=== PATIENT | female | born 1995 | race Caucasian/White ===

== ENCOUNTER 2017-01-29 08:43 | Emergency (ER) | payer SELFPAY ==
[2017-01-29] MEDS ORDERED: Diphtheria,Pertussis(Acell),Tetanus Vaccine 0.5 ML Syringe IM ONE (09:22)
[2017-01-29] MEDS ORDERED: Ibuprofen 600 MG Tab PO ONE (09:22)
--- NOTE | 2017-01-29 09:45 | EDM.PDOC ---
[id number]: SPLINTER IN HER FINGERNAIL Time Seen by Provider: 01/29/17 08:47 Source of Information: Reports: Patient History Limitations: Reports: No Limitations - History of Present Illness INITIAL COMMENTS - FREE TEXT/NARRATIVE: HISTORY AND PHYSICAL: History of present illness: [21-year-old female complaining of splinter under her fingernail which she sustained last night. It was very painful and becoming red. She was able to grab the splinter and remove it however she is concerned some residual splinter might still be in place. Swelling and erythema are resolved this morning but area is still mildly sore Review of systems: As per history of present illness and below otherwise all systems reviewed and negative. Past medical history: As per history of present illness and as reviewed below otherwise noncontributory. Surgical history: As per history of present illness and as reviewed below otherwise noncontributory. Social history: No reported history of drug or alcohol abuse. Family history: As per history of present illness and as reviewed below otherwise noncontributory. Physical exam: HEENT: Atraumatic, normocephalic, pupils reactive, negative for conjunctival pallor or scleral icterus, mucous membranes moist, throat clear, neck supple, nontender, trachea midline. Lungs: Clear to auscultation, breath sounds equal bilaterally, chest nontender. Heart: S1S2, regular, negative for clicks, rubs, or JVD. Abdomen: Soft, nondistended, nontender. Negative for masses or hepatosplenomegaly. Negative for costovertebral tenderness. Pelvis: Stable nontender. Genitourinary: Deferred. Rectal: Deferred. Extremities: Atraumatic, negative for cords or calf pain. Neurovascular unremarkable. Neuro: Awake, alert, oriented. Cranial nerves II through XII unremarkable. Cerebellum unremarkable. Motor and sensory unremarkable throughout. Exam nonfocal. Diagnostics: [] Therapeutics: [] Impression: [] Plan: [Signs and symptoms consistent with splinter that has been removed. The splinter tract is visible through the fingernail and it does not appear that any foreign body remains. Also clinical evidence of resolution of swelling and erythema which was present previously would indicate that there is no residual foreign body. Discussed with patient possibility of occult foreign body however clinical findings are reassuring at this time. She is aware to follow-up with her PCP for recheck and return immediately for signs of evolving infection] Definitive disposition and diagnosis as appropriate pending reevaluation and review of above. Left 4-Ring finger Pain Score (Numeric/FACES): 3 - Related Data Allergies Allergy/AdvReac Type Severity Reaction Status Date / Time hydromorphone HCl Allergy Hives Verified 07/13/16 16:17 [From Dilaudid] Home Meds: Home Meds . [No Known Home Meds] 07/03/15 [History] Past Medical History - Past Health History Medical/Surgical History: Denies Medical/Surgical History Genitourinary History: Reports: Renal Calculus Other Genitourinary History: Lithotripsy 2012 [employer] History: Reports: Psychiatric History: Reports: Anxiety, Depression, Suicide Attempt, Suicidal Ideation - Infectious Disease History Infectious Disease History: Reports: Chicken Pox - Past Surgical History Female Surgical History: Reports: Lithotripsy/ESWL Social & Family History - Family History Family Medical History: Noncontributory - Tobacco Use Smoking Status *Q: Current Every Day Smoker Years of Tobacco use: 9 Packs/Tins Daily: 1 Used Tobacco, but Quit: No Second Hand Smoke Exposure: No - Caffeine Use Caffeine Use: Reports: Energy Drinks - Alcohol Use Days Per Week of Alcohol Use: 0 Number of Drinks Per Day: 3 Total Drinks Per Week: 0 - Recreational Drug Use Recreational Drug Use: No Recreational Drug Type: Reports: Methamphetamine Recreational Drug Use Frequency: Weekly ED ROS GENERAL - Review of Systems Review Of Systems: See Below (History of present illness) ED EXAM, SKIN/RASH Exam: See Below (History of present illness) Course - Vital Signs Last Recorded V/S: Last Vital Signs Temp 36.0 C 01/29/17 08:48 Pulse 110 H 01/29/17 09:52 Resp 18 01/29/17 09:52 BP 120/71 01/29/17 09:52 Pulse Ox 100 01/29/17 09:52 - Orders/Labs/Meds Orders: Active Orders 24 hr Category Date Time Status Vaccines to be Administered [RC] PER UNIT ROUTINE Care 01/29/17 09:22 Active Meds: Medications Discontinued Medications Generic Name Dose Route Start Last Admin Trade Name Freq PRN Reason Stop Dose Admin Diphtheria/Tetanus/Acell Pertussis 0.5 ml 01/29/17 09:22 01/29/17 09:32 Adacel IM 01/29/17 09:23 0.5 ml .ONCE ONE Administration Ibuprofen 600 mg 01/29/17 09:22 01/29/17 09:32 Motrin PO 01/29/17 09:23 600 mg ONETIME ONE Administration Departure - Departure Time of Disposition: :40 Disposition: Home, Self-Care 01 Condition: Good Clinical Impression: Nailbed injury, Splinter - Discharge Information Instructions: Sliver Removal, Care After, Nail Bed Injury, [id number] Referrals: PCP,None [Primary Care Provider] - Forms: ED Department Discharge Additional Instructions: The would splinter caused a wound under your fingernail. This is called a subungual injury. It appears that you were able to remove the splinter successfully, and the decrease swelling and redness today compared with last night suggest that the condition is improving. You do not have signs of an evolving infection. It will still be sore until it's healed. Take Motrin every 6 hours and Tylenol every 4 hours as needed for discomfort. Follow up with your Dr. for wound recheck in one to 2 days and return immediately for signs of worsening infection. The aware any time you have a splinter or penetration of the skin by an object it is always possible the you Could have an occult foreign body. Occult foreign body means something in your skin that we can't see or find. It's important for you to be aware of this possibility, though typically the body tries to force of foreign body out of the skin eventually. Your tetanus shot was updated today so make a note in your medical history information. - My Orders Last 24 Hours: My Active Orders 01/29/17 09:22 Vaccines to be Administered [RC] PER UNIT ROUTINE - Assessment/Plan Last 24 Hours: My Active Orders 01/29/17 09:22 Vaccines to be Administered [RC] PER UNIT ROUTINE
[2017-01-29 09:53] VITALS: BP 120/71
== END 2017-01-29 09:52 | disposition home or self-care (01) ==
LOC: MW.ED 08:43
DX: S60.455A Superficial foreign body of left ring finger, initial encounter (principal); F41.9 Anxiety disorder, unspecified; F32.9 Major depressive disorder, single episode, unspecified; F17.210 Nicotine dependence, cigarettes, uncomplicated; Z23 Encounter for immunization; Z87.442 Personal history of urinary calculi; Z98.890 Other specified postprocedural states; Z88.5 Allergy status to narcotic agent; X58.XXXA Exposure to other specified factors, initial encounter
CPT/HCPCS: 90471; 90715; 99282; A9270

== ENCOUNTER 2018-02-07 19:50 | Inpatient (IN) | payer MEDICAID ==
[2018-02-07] MEDS ORDERED: Tranexamic Acid 1,000 MG in Sodium Chloride 0.9% 100 ML IV PRN (20:40)
[2018-02-07] MEDS ORDERED: Water For Irrigation,Sterile 1,000 ML Container IRR PRN (20:40)
[2018-02-07] MEDS ORDERED: Misoprostol 200 MCG Tab PO PRN (20:40)
[2018-02-07] MEDS ORDERED: Butorphanol 1 MG/ML SDV IVPUSH PRN (20:40)
[2018-02-07] MEDS ORDERED: Sodium Chloride 0.9% 10 ML Syringe FLUSH PRN (20:40)
[2018-02-07] MEDS ORDERED: Methylergonovine 0.2 MG/1 ML Amp IM PRN (20:40)
[2018-02-07] MEDS ORDERED: Sodium Chloride 0.9% 2.5 ML Syringe FLUSH PRN (20:40)
[2018-02-07] MEDS ORDERED: Carboprost Tromethamine 250 MCG/1 ML Amp IM PRN (20:40)
[2018-02-07] MEDS ORDERED: Nalbuphine 10 MG/1 ML Vial IVPUSH PRN (20:40)
[2018-02-07] MEDS ORDERED: Lidocaine 1% 50 ML MDV INJECT PRN (20:40)
[2018-02-07] MEDS ORDERED: Ampicillin 2 GM in Sodium Chloride 0.9% 100 ML IV ONE (21:00)
[2018-02-07] MEDS: Lactated Ringers 1,000 ML IV SCH (21:15)
--- NOTE | 2018-02-07 21:51 | PCM.PREANE ---
Preanesthetic Assessment - Anesthesia/Transfusion/Family Hx Anesthesia History: No Prior Anesthesia Family History of Anesthesia Reaction: No Transfusion History: No Prior Transfusion(s) Intubation History: Unknown - Review of Systems General: Other (screaming in pain from contractions) Pulmonary: No Symptoms Cardiovascular: No Symptoms Gastrointestinal: No Symptoms Neurological: No Symptoms Other: Reports: Anxiety - Physical Assessment NPO Status Date: 02/07/18 NPO Status Time: 19:00 (sips/chips now) Pulse: 88 Blood Pressure: 139/82 Height: 5 ft Weight: 153 lb ASA Class: 2 Mental Status: Alert & Oriented x3 Airway Class: Mallampati = 2 Dentition: Reports: Normal Dentition Thyro-Mental Finger Breadths: 3 Mouth Opening Finger Breadths: 3 ROM/Head Extension: Full Lungs: Clear to Auscultation, Normal Respiratory Effort Cardiovascular: Regular Rate, Regular Rhythm - Lab Values: Laboratory Last Values WBC 17.11 K/uL (4.0-11.0) H 02/07/18 21:07 RBC 3.96 M/uL (4.30-5.90) L 02/07/18 21:07 Hgb 12.2 g/dL (12.0-16.0) 02/07/18 21:07 Hct 34.3 % (36.0-46.0) L 02/07/18 21:07 MCV 86.6 fL (80.0-98.0) 02/07/18 21:07 MCH 30.8 pg (27.0-32.0) 02/07/18 21:07 MCHC 35.6 g/dL (31.0-37.0) 02/07/18 21:07 RDW Std Deviation 41.9 fl (28.0-62.0) 02/07/18 21:07 RDW Coeff of Andi 14 % (11.0-15.0) 02/07/18 21:07 Plt Count 302 K/uL (150-400) 02/07/18 21:07 MPV 10.50 fL (7.40-12.00) 02/07/18 21:07 Nucleated RBC % 0.0 /100WBC 02/07/18 21:07 Nucleated RBCs # 0 K/uL 02/07/18 21:07 Membrane Rupture POSITIVE 02/07/18 20:10 - Allergies Allergies/Adverse Reactions: Allergies Allergy/AdvReac Type Severity Reaction Status Date / Time hydromorphone HCl Allergy Hives Verified 07/13/16 16:17 [From Dilaudid] - Blood Blood Available: No Product(s) Available: None - Anesthesia Plan Free Text/Narrative:: Labor Epidural - Acknowledgements Anesthesia Type Planned: Epidural Pt an Appropriate Candidate for the Planned Anesthesia: Yes Alternatives and Risks of Anesthesia Discussed w Pt/Guardian: Yes Pt/Guardian Understands and Agrees with Anesthesia Plan: Yes PreAnesthesia Questionnaire - Past Health History Medical/Surgical History: Denies Medical/Surgical History Genitourinary History: Reports: Renal Calculus Other Genitourinary History: Lithotripsy 2012 [employer]OR History: Reports: Psychiatric History: Reports: Anxiety, Depression, Suicide Attempt, Suicidal Ideation - Infectious Disease History Infectious Disease History: Reports: Chicken Pox - Past Surgical History Female Surgical History: Reports: Lithotripsy/ESWL - HOME MEDS Home Medications: Home Meds . [No Known Home Meds] 07/03/15 [History] - CURRENT (IN HOUSE) MEDS Current Meds: Current Medications Butorphanol Tartrate (Stadol) 1 mg IVPUSH Q1H PRN PRN Reason: Pain Carboprost Tromethamine (Hemabate Ds) 250 mcg IM ASDIRECTED PRN PRN Reason: Post Hemorrhage Tranexamic Acid 1,000 mg/ (Sodium Chloride) 110 mls @ 660 mls/hr IV ONETIME PRN PRN Reason: Bleeding Lactated Ringer's (Ringers, Lactated) 1,000 mls @ 150 mls/hr IV ASDIRECTED [facility] Last Admin: 02/07/18 21:15 Dose: 150 mls/hr Ampicillin Sodium 1 gm/ Sodium (Chloride) 50 mls @ 100 mls/hr IV Q4H [facility] Lidocaine HCl (Xylocaine 1%) 50 ml INJECT .ONCE PRN PRN Reason: Laceration repair Methylergonovine Maleate (Methergine) 0.2 mg IM ASDIRECTED PRN PRN Reason: Post Hemorrhage Misoprostol (Cytotec) 200 mcg PO .ONCE PRN PRN Reason: Post Hemorrhage Nalbuphine HCl (Nubain) 10 mg IVPUSH Q1H PRN PRN Reason: Pain (severe 7-10) Sodium Chloride (Saline Flush) 10 ml FLUSH ASDIRECTED PRN PRN Reason: Keep Vein Open Sodium Chloride (Saline Flush) 2.5 ml FLUSH ASDIRECTED PRN PRN Reason: Keep Vein Open Sterile Water (Sterile Water For Irrigation) 1,000 ml IRR ASDIRECTED PRN PRN Reason: delivery Discontinued Medications Ampicillin Sodium 2 gm/ Sodium (Chloride) 100 mls @ 200 mls/hr IV ONETIME ONE Stop: 02/07/18 21:29 Last Admin: 02/07/18 21:20 Dose: 200 mls/hr
[2018-02-07] MEDS ORDERED: fentaNYL 100 MCG/2 ML SDV ONE (21:53)
[2018-02-07] MEDS ORDERED: Ropivacaine 0.2% 2 MG/ML 20 ML SDV ONE (21:54)
[2018-02-07] MEDS ORDERED: Ropivacaine HCl/PF 100 ML ONE (21:54)
[2018-02-08] MEDS ORDERED: Ampicillin 1 GM in Sodium Chloride 0.9% 50 ML IV SCH (01:00)
[2018-02-08] MEDS: Lactated Ringers 1,000 ML IV SCH (01:50)
[2018-02-08] MEDS: Ampicillin 1 GM in Sodium Chloride 0.9% 50 ML IV SCH ×2 (01:50→05:42)
[2018-02-08] MEDS ORDERED: Acetaminophen 500 MG Tab PO ONE (02:34)
[2018-02-08] MEDS ORDERED: Oxytocin/0.9 % Sodium Chloride 30 UNIT/500 ML BAG IV SCH (05:30)
[2018-02-08] MEDS ORDERED: Sodium Chloride 0.9% 10 ML Syringe FLUSH PRN (05:30)
[2018-02-08] MEDS ORDERED: Sodium Chloride 0.9% 2.5 ML Syringe FLUSH PRN (05:30)
[2018-02-08] MEDS ORDERED: Ibuprofen 400 MG Tab PO PRN (06:56)
[2018-02-08] MEDS ORDERED: Witch Hazel Medicated Pads 40/Jar TOP PRN (06:56)
[2018-02-08] MEDS ORDERED: Bisacodyl 10 MG Supp RECTAL PRN (06:56)
[2018-02-08] MEDS ORDERED: Lanolin 100% Cream 7 GM Tube TOP PRN (06:56)
[2018-02-08] MEDS ORDERED: Acetaminophen 500 MG Tab PO PRN ×2 (06:56)
[2018-02-08] MEDS ORDERED: Docusate Sodium 100 MG Cap PO PRN (06:56)
[2018-02-08] MEDS ORDERED: Benzocaine/Menthol 20%-0.5% Spray 78 GM Cannister TOP PRN (06:56)
--- NOTE | 2018-02-08 07:06 | PCM.DEL ---
L & D Note - General Info Date of Service: 02/08/18 - Delivery Note Delivery Method: Spontaneous Vaginal Delivery-Single Anesthesia Type: Epidural Amniotic Fluid Description: Meconium Stained Laceration: 1st Degree, Labial Suture type: Vicryl Suture size: 4-0 Placenta: Intact, Spontaneous Cord: 3 Vessels Delivery Comments (Free Text/Narrative):: Dictation [id number] - General Info Date of Service: 02/08/18 - Patient Data Vitals - Most Recent: Last Vital Signs Temp 38.2 C H 02/08/18 02:56 Pulse 88 02/07/18 22:26 Resp BP 139/82 02/07/18 22:26 Pulse Ox Weight - Most Recent: 69.4 kg Lab Results Last 24 Hours: Laboratory Results - last 24 hr 02/07/18 02/07/18 02/07/18 Range/Units 20:10 21:07 21:07 WBC 17.11 H (4.0-11.0) K/uL RBC 3.96 L (4.30-5.90) M/uL Hgb 12.2 (12.0-16.0) g/dL Hct 34.3 L (36.0-46.0) % MCV 86.6 (80.0-98.0) fL MCH 30.8 (27.0-32.0) pg MCHC 35.6 (31.0-37.0) g/dL RDW Std Deviation 41.9 (28.0-62.0) fl RDW Coeff of Andi 14 (11.0-15.0) % Plt Count 302 (150-400) K/uL MPV 10.50 (7.40-12.00) fL Nucleated RBC % 0.0 /100WBC Nucleated RBCs # 0 K/uL Urine Color Urine Appearance Urine pH (5.0-8.0) Ur Specific [place] (1.001-1.035) Urine Protein (NEGATIVE) mg/dL Urine Glucose (UA) (NEGATIVE) mg/dL Urine Ketones (NEGATIVE) mg/dL Urine Occult Blood (NEGATIVE) Urine Nitrite (NEGATIVE) Urine Bilirubin (NEGATIVE) Urine Urobilinogen (<2.0) EU/dL Ur Leukocyte Esterase (NEGATIVE) Membrane Rupture POSITIVE Urine Opiates Screen (NEGATIVE) Ur Oxycodone Screen (NEGATIVE) Urine Methadone Screen (NEGATIVE) Ur Barbiturates Screen (NEGATIVE) Ur Phencyclidine Scrn (NEGATIVE) Ur Amphetamine Screen (NEGATIVE) U Methamphetamines Scrn (NEGATIVE) U Benzodiazepines Scrn (NEGATIVE) U Cocaine Metab Screen (NEGATIVE) U Marijuana (THC) Screen (NEGATIVE) Blood Type B POSITIVE Antibody Screen NEGATIVE Cold Antibody Screen POSITIVE 02/07/18 02/07/18 Range/Units 21:56 21:56 WBC (4.0-11.0) K/uL RBC (4.30-5.90) M/uL Hgb (12.0-16.0) g/dL Hct (36.0-46.0) % MCV (80.0-98.0) fL MCH (27.0-32.0) pg MCHC (31.0-37.0) g/dL RDW Std Deviation (28.0-62.0) fl RDW Coeff of Andi (11.0-15.0) % Plt Count (150-400) K/uL MPV (7.40-12.00) fL Nucleated RBC % /100WBC Nucleated RBCs # K/uL Urine Color YELLOW Urine Appearance CLEAR Urine pH 7.5 (5.0-8.0) Ur Specific [place] 1.020 (1.001-1.035) Urine Protein NEGATIVE (NEGATIVE) mg/dL Urine Glucose (UA) NEGATIVE (NEGATIVE) mg/dL Urine Ketones 15 H (NEGATIVE) mg/dL Urine Occult Blood MODERATE (NEGATIVE) Urine Nitrite NEGATIVE (NEGATIVE) Urine Bilirubin NEGATIVE (NEGATIVE) Urine Urobilinogen 0.2 (<2.0) EU/dL Ur Leukocyte Esterase NEGATIVE (NEGATIVE) Membrane Rupture Urine Opiates Screen NEGATIVE (NEGATIVE) Ur Oxycodone Screen NEGATIVE (NEGATIVE) Urine Methadone Screen NEGATIVE (NEGATIVE) Ur Barbiturates Screen NEGATIVE (NEGATIVE) Ur Phencyclidine Scrn NEGATIVE (NEGATIVE) Ur Amphetamine Screen NEGATIVE (NEGATIVE) U Methamphetamines Scrn NEGATIVE (NEGATIVE) U Benzodiazepines Scrn NEGATIVE (NEGATIVE) U Cocaine Metab Screen NEGATIVE (NEGATIVE) U Marijuana (THC) Screen NEGATIVE (NEGATIVE) Blood Type Antibody Screen Cold Antibody Screen Med Orders - Current: Current Medications Acetaminophen (Tylenol Extra Strength) 500 mg PO Q4H PRN PRN Reason: Pain Acetaminophen (Tylenol Extra Strength) 1,000 mg PO Q4H PRN PRN Reason: Pain Benzocaine/Menthol (Dermoplast Pain Relief 20%-0.5% [place]) 78 gm TOP ASDIRECTED PRN PRN Reason: Perineal Comfort Measure Bisacodyl (Dulcolax) 10 mg RECTAL .ONCE PRN PRN Reason: Constipation Carboprost Tromethamine (Hemabate Ds) 250 mcg IM ASDIRECTED PRN PRN Reason: Post Hemorrhage Docusate Sodium (Colace) 100 mg PO BID PRN PRN Reason: Constipation Emollient Ointment (Lansinoh Hpa) 0 gm TOP ASDIRECTED PRN PRN Reason: Sore Nipples Tranexamic Acid 1,000 mg/ (Sodium Chloride) 110 mls @ 660 mls/hr IV ONETIME PRN PRN Reason: Bleeding Lactated Ringer's (Ringers, Lactated) 1,000 mls @ 150 mls/hr IV ASDIRECTED [facility] Last Admin: 02/08/18 01:50 Dose: 150 mls/hr Oxytocin/Sodium Chloride (Oxytocin 30 Unit/500 Ml-Ns) 30 unit in 500 mls @ 500 mls/hr IV TITRATE [facility] Ibuprofen (Motrin) 400 mg PO Q4H PRN PRN Reason: Pain Ibuprofen (Motrin) 800 mg PO Q6H PRN PRN Reason: Pain Methylergonovine Maleate (Methergine) 0.2 mg IM ASDIRECTED PRN PRN Reason: Post Hemorrhage Misoprostol (Cytotec) 200 mcg PO .ONCE PRN PRN Reason: Post Hemorrhage Nalbuphine HCl (Nubain) 10 mg IVPUSH Q1H PRN PRN Reason: Pain (severe 7-10) Sodium Chloride (Saline Flush) 10 ml FLUSH ASDIRECTED PRN PRN Reason: Keep Vein Open Sterile Water (Sterile Water For Irrigation) 1,000 ml IRR ASDIRECTED PRN PRN Reason: delivery Witch Linda (Tucks) 1 pad TOP ASDIRECTED PRN PRN Reason: comfort care Discontinued Medications Acetaminophen (Tylenol Extra Strength) 1,000 mg PO ONETIME ONE Stop: 02/08/18 02:35 Last Admin: 02/08/18 02:56 Dose: 1,000 mg Butorphanol Tartrate (Stadol) 1 mg IVPUSH Q1H PRN PRN Reason: Pain Fentanyl (Sublimaze) Confirm Administered Dose 100 mcg .ROUTE .STK-MED ONE Stop: 02/07/18 21:54 Ampicillin Sodium 2 gm/ Sodium (Chloride) 100 mls @ 200 mls/hr IV ONETIME ONE Stop: 02/07/18 21:29 Last Admin: 02/07/18 21:20 Dose: 200 mls/hr Ropivacaine (Naropin 0.2%) Confirm Administered Dose 100 mls @ as directed .ROUTE .STK-MED ONE Stop: 02/07/18 21:55 Ampicillin Sodium 1 gm/ Sodium (Chloride) 50 mls @ 100 mls/hr IV Q4H [facility] Last Admin: 02/08/18 05:42 Dose: 100 mls/hr Lidocaine HCl (Xylocaine 1%) 50 ml INJECT .ONCE PRN PRN Reason: Laceration repair Ropivacaine (Naropin 0.2%) Confirm Administered Dose 20 ml .ROUTE .STK-MED ONE Stop: 02/07/18 21:55 Sodium Chloride (Saline Flush) 2.5 ml FLUSH ASDIRECTED PRN PRN Reason: Keep Vein Open Sodium Chloride (Saline Flush) 10 ml FLUSH ASDIRECTED PRN PRN Reason: Keep Vein Open Sodium Chloride (Saline Flush) 2.5 ml FLUSH ASDIRECTED PRN PRN Reason: Keep Vein Open - Problem List & Annotations (1) Vaginal delivery SNOMED Code(s): 811209458 Code(s): O80 - ENCOUNTER FOR FULL-TERM UNCOMPLICATED DELIVERY Status: Acute Current Visit: Yes - Problem List Review Problem List Initiated/Reviewed/Updated: Yes - My Orders Last 24 Hours: My Active Orders 02/07/18 20:33 Non Stress Test [RC] PER UNIT ROUTINE Up ad Deann [RC] ASDIRECTED Vaginal Exam [RC] Click to Edit Vital Signs [RC] PER UNIT ROUTINE 02/07/18 20:40 Patient Status [ADT] Routine Heart Tones [RC] CONTINUOUS Non Stress Test [RC] PER UNIT ROUTINE May Shower [RC] ASDIRECTED Notify Provider [RC] PRN Up ad Deann [RC] ASDIRECTED Vaginal Exam [RC] PRN Carboprost Tromethamine [Hemabate DS] 250 mcg IM ASDIRECTED PRN Methylergonovine [Methergine] 0.2 mg IM ASDIRECTED PRN Misoprostol [Cytotec] 200 mcg PO .ONCE PRN Nalbuphine [Nubain] 10 mg IVPUSH Q1H PRN Sodium Chloride 0.9% [Saline Flush] 10 ml FLUSH ASDIRECTED PRN Tranexamic Acid [Cyklokapron] 1,000 mg Sodium Chloride 0.9% [Normal Saline] 100 ml IV ONETIME Water For Irrigation,Sterile [Sterile Water for Irrigation] 1,000 ml IRR ASDIRECTED PRN Peripheral IV Insertion Adult [OM.PC] Routine 02/07/18 20:45 Lactated Ringers [Ringers, Lactated] 1,000 ml IV ASDIRECTED 02/08/18 05:30 Oxytocin/0.9 % Sodium Chloride [Oxytocin 30 Unit/500 ML-NS] 30 unit in 500 ml IV TITRATE Peripheral IV Insertion Adult [OM.PC] Routine 02/08/18 06:56 Patient Status [ADT] Routine May Shower [RC] ASDIRECTED Up ad Deann [RC] ASDIRECTED Vital Signs [RC] PER UNIT ROUTINE BLOOD GAS ARTERIAL UMBILICAL [BG] Urgent BLOOD GAS VENOUS UMBILICAL [BG] Urgent Acetaminophen [Tylenol Extra Strength] 1,000 mg PO Q4H PRN Acetaminophen [Tylenol Extra Strength] 500 mg PO Q4H PRN Benzocaine/Menthol [Dermoplast Pain Relief 20%-0.5% [place]] 78 gm TOP ASDIRECTED PRN Bisacodyl [Dulcolax] 10 mg RECTAL .ONCE PRN Docusate Sodium [Colace] 100 mg PO BID PRN Ibuprofen [Motrin] 400 mg PO Q4H PRN Ibuprofen [Motrin] 800 mg PO Q6H PRN Lanolin [Lansinoh HPA] See Dose Instructions TOP ASDIRECTED PRN Witch Linda [Tucks] 1 pad TOP ASDIRECTED PRN Assess Lochia [WOMSER] Per Unit Routine Assess Uterine Involution [WOMSER] Per Unit Routine Peripheral IV Discontinue [OM.PC] Routine Resuscitation Status Routine 02/08/18 06:57 Ice Therapy [OM.PC] Per Unit Routine Perineal Care [OM.PC] Per Unit Routine Sitz Bath [OM.PC] Per Unit Routine 02/08/18 Breakfast Regular Diet [DIET] 02/09/18 05:11 HEMOGLOBIN/HEMATOCRIT,HH [HEME] Timed
--- NOTE | 2018-02-08 08:17 | OR ---
SURGEON: Yudith Loza M.D. DATE OF PROCEDURE: 02/08/2018 PREOPERATIVE DIAGNOSES: 1. Forty week intrauterine . 2. Active labor, spontaneous rupture of membranes. 3. Meconium-stained amniotic fluid. 4. Group B beta Streptococcus positive. POSTOPERATIVE DIAGNOSES: 1. Forty week intrauterine . 2. Active labor, spontaneous rupture of membranes. 3. Meconium-stained amniotic fluid. 4. Group B beta Streptococcus positive. PROCEDURE: Spontaneous vaginal delivery, first-degree left labial laceration repaired. ESTIMATED BLOOD LOSS: 300 mL. COMPLICATIONS: None. FINDINGS: Viable male, score 8 at 1 minute, 9 at 5 minutes. Weight of 3300 g. Spontaneous delivery, meconium staining, intact placenta with three-vessel cord. DISPOSITION: The patient to PACU and to nursery, stable. PROCEDURE DETAILS: Ana Rosa is a 22-year-old, G2, P1, at 39 and 6 weeks' gestational age, who presented on the evening of 02/08/2018 with regular contractions and leakage of fluid. AmniSure was positive. She is group B beta strep positive. Therefore, she was admitted. Routine labs were drawn. IV fluid hydration was initiated, and she underwent group B beta strep prophylaxis. The patient began having very intense contractions and was breathing through them, was requesting regional anesthesia from epidural. She was found to be 4 cm dilated. 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 Shortly after 5:00 a.m., she was found to be complete, 100% effaced, at a +2 station, began pushing efforts. She pushed for approximately 45 minutes. I was called for delivery. Upon my arrival, the patient was placed in modified dorsal position. She was prepped and draped in the usual aseptic manner. With +3 station with next contraction, was able to push to deliver 's head atraumatically, spontaneously, followed by anterior shoulder, posterior shoulder, and remainder of body. 's oropharynx and nares bulb suctioned. Cord was clamped x2 and cut. was handed off to attending physician, Dr. Salinas. Cord arterial, cord venous, cord blood sampling obtained. Light pressure was applied while the placenta was delivered spontaneously intact. Vigorous fundal uterine massage was then applied while 30 units of Pitocin was delivered in 500 mL of fluid upon inspection of cervix, vaginal sidewalls, and perineum. There was found to be a first-degree left labial laceration noted. This was repaired using 4-0 Vicryl in continuous running fashion. Hemostasis evident. Uterus remained firm. Hemostasis remained evident. Sponge count and needle counts correct. The patient remained in LDRP. in nursery. DIVYA / CELINE /[id number]
[2018-02-08] MEDS: Ibuprofen 800 MG Tab PO PRN ×2 (08:52→20:39)
[2018-02-08] MEDS ORDERED: hydrOXYzine Pamoate 25 MG Cap PO ONE (21:25)
[2018-02-09] MEDS: Ibuprofen 800 MG Tab PO PRN ×3 (05:18→20:37)
--- NOTE | 2018-02-09 09:43 | PCM.PNPP ---
- General Info Date of Service: 02/09/18 Functional Status: Reports: Pain Controlled, Tolerating Diet, Ambulating, Urinating - Review of Systems General: Reports: Fatigue. Denies: Fever, Weakness Pulmonary: Denies: Shortness of Breath Cardiovascular: Denies: Chest Pain, Palpitations, Lightheadedness Gastrointestinal: Denies: Abdominal Pain, Nausea, Vomiting Genitourinary: Denies: Flank Pain Skin: Reports: No Symptoms Neurological: Denies: Confusion, Dizziness, Headache Psychiatric: Reports: No Symptoms - General Info Date of Service: 02/09/18 - Patient Data Vital Signs - Most Recent: Last Vital Signs Temp 36.3 C 02/09/18 05:20 Pulse 66 02/09/18 05:20 Resp 18 02/09/18 05:20 BP 132/62 02/09/18 05:20 Pulse Ox 96 02/08/18 17:21 Weight - Most Recent: 69.4 kg Lab Results - Last 24 Hours: Laboratory Results - last 24 hr 02/09/18 Range/Units 05:29 Hgb 10.8 L (12.0-16.0) g/dL Hct 30.9 L (36.0-46.0) % Med Orders - Current: Current Medications Acetaminophen (Tylenol Extra Strength) 500 mg PO Q4H PRN PRN Reason: Pain Acetaminophen (Tylenol Extra Strength) 1,000 mg PO Q4H PRN PRN Reason: Pain Last Admin: 02/08/18 11:20 Dose: 1,000 mg Benzocaine/Menthol (Dermoplast Pain Relief 20%-0.5% [place]) 0 gm TOP ASDIRECTED PRN PRN Reason: Perineal Comfort Measure Last Admin: 02/08/18 08:51 Dose: 78 gm Bisacodyl (Dulcolax) 10 mg RECTAL .ONCE PRN PRN Reason: Constipation Carboprost Tromethamine (Hemabate Ds) 250 mcg IM ASDIRECTED PRN PRN Reason: Post Hemorrhage Docusate Sodium (Colace) 100 mg PO BID PRN PRN Reason: Constipation Last Admin: 02/08/18 20:39 Dose: 100 mg Emollient Ointment (Lansinoh Hpa) 0 gm TOP ASDIRECTED PRN PRN Reason: Sore Nipples Tranexamic Acid 1,000 mg/ (Sodium Chloride) 110 mls @ 660 mls/hr IV ONETIME PRN PRN Reason: Bleeding Lactated Ringer's (Ringers, Lactated) 1,000 mls @ 150 mls/hr IV ASDIRECTED [facility] Last Admin: 02/08/18 01:50 Dose: 150 mls/hr Oxytocin/Sodium Chloride (Oxytocin 30 Unit/500 Ml-Ns) 30 unit in 500 mls @ 500 mls/hr IV TITRATE [facility] Last Admin: 02/08/18 06:24 Dose: 500 mls/hr Ibuprofen (Motrin) 400 mg PO Q4H PRN PRN Reason: Pain Ibuprofen (Motrin) 800 mg PO Q6H PRN PRN Reason: Pain Last Admin: 02/09/18 05:18 Dose: 800 mg Methylergonovine Maleate (Methergine) 0.2 mg IM ASDIRECTED PRN PRN Reason: Post Hemorrhage Misoprostol (Cytotec) 200 mcg PO .ONCE PRN PRN Reason: Post Hemorrhage Nalbuphine HCl (Nubain) 10 mg IVPUSH Q1H PRN PRN Reason: Pain (severe 7-10) Sodium Chloride (Saline Flush) 10 ml FLUSH ASDIRECTED PRN PRN Reason: Keep Vein Open Sterile Water (Sterile Water For Irrigation) 1,000 ml IRR ASDIRECTED PRN PRN Reason: delivery Witch Linda (Tucks) 1 pad TOP ASDIRECTED PRN PRN Reason: comfort care Discontinued Medications Acetaminophen (Tylenol Extra Strength) 1,000 mg PO ONETIME ONE Stop: 02/08/18 02:35 Last Admin: 02/08/18 02:56 Dose: 1,000 mg Butorphanol Tartrate (Stadol) 1 mg IVPUSH Q1H PRN PRN Reason: Pain Fentanyl (Sublimaze) Confirm Administered Dose 100 mcg .ROUTE .STK-MED ONE Stop: 02/07/18 21:54 Hydroxyzine Pamoate (Vistaril) 50 mg PO ONETIME ONE Stop: 02/08/18 21:26 Last Admin: 02/08/18 21:56 Dose: 50 mg Ampicillin Sodium 2 gm/ Sodium (Chloride) 100 mls @ 200 mls/hr IV ONETIME ONE Stop: 02/07/18 21:29 Last Admin: 02/07/18 21:20 Dose: 200 mls/hr Ropivacaine (Naropin 0.2%) Confirm Administered Dose 100 mls @ as directed .ROUTE .STK-MED ONE Stop: 02/07/18 21:55 Ampicillin Sodium 1 gm/ Sodium (Chloride) 50 mls @ 100 mls/hr IV Q4H [facility] Last Admin: 02/08/18 05:42 Dose: 100 mls/hr Lidocaine HCl (Xylocaine 1%) 50 ml INJECT .ONCE PRN PRN Reason: Laceration repair Ropivacaine (Naropin 0.2%) Confirm Administered Dose 20 ml .ROUTE .STK-MED ONE Stop: 02/07/18 21:55 Sodium Chloride (Saline Flush) 2.5 ml FLUSH ASDIRECTED PRN PRN Reason: Keep Vein Open Sodium Chloride (Saline Flush) 10 ml FLUSH ASDIRECTED PRN PRN Reason: Keep Vein Open Sodium Chloride (Saline Flush) 2.5 ml FLUSH ASDIRECTED PRN PRN Reason: Keep Vein Open - Interaction Support Person: Friend - Recovery Exam Fundal Tone: Firm Fundal Level: At Umbilicus Fundal Placement: Midline Lochia Amount: Moderate Lochia Color: Rubra/Red Perineum Description: Intact, Minimal Bruising/Swelling Episiotomy/Laceration: Approximated Bladder Status: Voiding Urinary Elimination: Voided - Exam General: Alert, Oriented Lungs: Normal Respiratory Effort Cardiovascular: Regular Rate, Regular Rhythm GI/Abdominal Exam: Normal Bowel Sounds, Soft Extremities: Pedal Edema. No: Artem's Sign Skin: Warm, Dry, Intact Neurological: No New Focal Deficit Psy/Mental Status: Alert, Normal Affect - Problem List & Annotations (1) Vaginal delivery SNOMED Code(s): 639481108 Code(s): O80 - ENCOUNTER FOR FULL-TERM UNCOMPLICATED DELIVERY Status: Acute Current Visit: Yes - Problem List Review Problem List Initiated/Reviewed/Updated: Yes - Assessment Assessment:: PPD 1 status post - Plan Plan:: Continue cares. has an IV so will continue to be monitored. Continue to work with today.
--- NOTE | 2018-02-09 12:47 | PCM48HPAN ---
Post Anesthesia Note - EVALUATION WITHIN 48HRS OF ANESTHETIC Vital Signs in Normal Range: Yes Patient Participated in Evaluation: Yes Respiratory Function Stable: Yes Airway Patent: Yes Cardiovascular Function Stable: Yes Hydration Status Stable: Yes Pain Control Satisfactory: Yes Nausea and Vomiting Control Satisfactory: Yes Mental Status Recovered: Yes Pulse Rate: 85 Resp Rate: 18 Temperature: 97.3 F Blood Pressure: 132/62
[2018-02-09 19:36] VITALS: BP 151/95
[2018-02-09] MEDS ORDERED: Measles, Mumps & Rubella Vaccine 0.5 ML SDV SUBCUT ONE (20:27)
== END 2018-02-09 21:10 | disposition home or self-care (01) | DRG 775 ==
LOC: MW.OBCHECK 19:50 → MW.OB 20:08 → MW.OBCHECK 20:40 → MW.OB 21:28 → OBSVTOIN 02-08 06:23
PROVIDERS: ADMIT Obstetrics & Gynecology; ATTEND Advanced Practice Midwife
PROC: 10E0XZZ Delivery of Products of Conception, External Approach (ICD-10-PCS; principal; 2018-02-08)
PROC: 0HQ9XZZ Repair Perineum Skin, External Approach (ICD-10-PCS; 2018-02-08)
PROC: 3E0234Z Introduction of Serum, Toxoid and Vaccine into Muscle, Percutaneous Approach (ICD-10-PCS; 2018-02-08)
DX: O42.02 Full-term premature rupture of membranes, onset of labor within 24 hours of rupture (principal); O70.0 First degree perineal laceration during delivery; O77.0 Labor and delivery complicated by meconium in amniotic fluid; O99.824 Streptococcus B carrier state complicating childbirth; Z3A.39 39 weeks gestation of pregnancy; Z37.0 Single live birth; Z23 Encounter for immunization
CPT/HCPCS: 36415; 51701; 51702; 59025; 59409; 80305; 81003; 82803; 84112; 85014; 85018; 85027; 86156; 86850; 86900; 86901; 90707; A9270-GY; J0290; J2590; J2795; J3010; J7030; J7050; J7120

== ENCOUNTER 2018-11-20 10:08 | Emergency (ER) | payer SELFPAY ==
[2018-11-20] MEDS ORDERED: Ketorolac 30 MG/ML SDV IVPUSH ONE (10:12)
[2018-11-20] MEDS ORDERED: Sodium Chloride 0.9% 10 ML Syringe FLUSH PRN (10:12)
[2018-11-20] MEDS ORDERED: Sodium Chloride 0.9% 2.5 ML Syringe FLUSH PRN (10:12)
[2018-11-20 10:19] VITALS: BP 144/81
[2018-11-20] MEDS ORDERED: Sodium Chloride 0.9% 1,000 ML IV ONE (10:20)
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
[2018-11-20] MEDS ORDERED: Morphine 4 MG/ML Syringe IVPUSH ONE (11:07)
[2018-11-20] MEDS ORDERED: Ondansetron 4 MG/2 ML SDV IVPUSH ONE (11:07)
--- NOTE | 2018-11-20 11:52 | CT ---
CT of the abdomen and pelvis without contrast. HISTORY: Left flank pain TECHNIQUE: Axial CT images were obtained of the abdomen and pelvis without contrast. Coronal and sagittal reconstructions obtained. FINDINGS: The lung bases are clear, no pleural effusion. The liver, spleen, adrenal glands, and pancreas appear unremarkable for noncontrast examination. The gallbladder appears normal. There is no bulky retroperitoneal lymphadenopathy. No abdominal ascites. There is a 5 mm stone within the mid left ureter. There is mild proximal hydronephrosis. Nonobstructing nephrolithiasis otherwise noted bilaterally The large and small bowel are normal in caliber without evidence of obstruction. The appendix appears normal. There is no bulky pelvic lymphadenopathy. No free fluid. No free air. The urinary bladder appears normal. The visualized osseous structures appear normal. IMPRESSION: 1. There is a 5 mm obstructing stone within the mid left ureter with proximal hydronephrosis. 2. Nonobstructing nephrolithiasis bilaterally.
[2018-11-20] MEDS ORDERED: Tamsulosin 0.4 MG Cap.ER PO ONE (11:56)
== END 2018-11-20 12:47 | disposition home or self-care (01) ==
LOC: MW.ED 10:08
DX: N13.2 Hydronephrosis with renal and ureteral calculous obstruction (principal); F17.210 Nicotine dependence, cigarettes, uncomplicated; Z88.6 Allergy status to analgesic agent
CPT/HCPCS: 36415; 51798; 74176; 80053; 81001; 84703; 85025; 96361; 96374; 96375; 99284; A9270; J1885; J2270; J2405; J7040

== ENCOUNTER 2018-11-21 12:46 | Day surgery (SDC) | payer SELFPAY ==
[~2018-11-21 12:46] MED LIST: Lactated Ringers 1,000 ML IV SCH
[2018-11-21] MEDS ORDERED: Midazolam 1 MG/ML 2 ML SDV ONE (13:28)
[2018-11-21] MEDS ORDERED: Propofol 200 MG/20 ML SDV ONE (13:28)
[2018-11-21] MEDS ORDERED: Lidocaine 2% 5 ML SDV ONE (13:29)
[2018-11-21] MEDS ORDERED: fentaNYL 100 MCG/2 ML SDV ONE (13:29)
[2018-11-21] MEDS ORDERED: Rocuronium 100 MG/10 ML Syringe ONE (13:29)
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
[2018-11-21] MEDS ORDERED: Sugammadex Sodium 200 MG/2 ML VIAL ONE (14:43)
[2018-11-21] MEDS ORDERED: Ondansetron 4 MG/2 ML SDV ONE (14:44)
[2018-11-21] MEDS ORDERED: Phenylephrine/Normal Saline 100 MCG/ML 10 ML Syringe ONE (14:44)
[2018-11-21] MEDS ORDERED: Ketorolac 30 MG/ML SDV IVPUSH ONE (15:26)
--- NOTE | 2018-11-21 15:54 | PCM.POSTAN ---
POST ANESTHESIA ASSESSMENT - MENTAL STATUS Mental Status: Alert, Oriented - RESPIRATORY Respiratory Status: Respiratory Rate WNL, Airway Patent, O2 Saturation Stable - CARDIOVASCULAR CV Status: Pulse Rate WNL, Blood Pressure Stable - GASTROINTESTINAL GI Status: No Symptoms - PAIN Pain Score: 0 - POST OP HYDRATION Hydration Status: Adequate & Stable
[2018-11-21] MEDS ORDERED: fentaNYL 100 MCG/2 ML SDV IVPUSH PRN (16:19)
[2018-11-21] MEDS ORDERED: Acetaminophen/HYDROcodone 325-5 MG Tab PO ONE (16:45)
[2018-11-21 17:15] VITALS: BP 123/66
--- NOTE | 2018-11-21 17:29 | PCM48HPAN ---
Post Anesthesia Note - EVALUATION WITHIN 48HRS OF ANESTHETIC Vital Signs in Normal Range: Yes Patient Participated in Evaluation: Yes Respiratory Function Stable: Yes Airway Patent: Yes Cardiovascular Function Stable: Yes Hydration Status Stable: Yes Pain Control Satisfactory: Yes Nausea and Vomiting Control Satisfactory: Yes Mental Status Recovered: Yes Resp Rate: 18
--- NOTE | 2018-11-21 23:34 | OR ---
SURGEON: Shaggy Krishnan M.D. DATE OF PROCEDURE: 11/21/2018 POSTOPERATIVE DIAGNOSIS: 1 cm left mid to upper ureteral stone. POSTOPERATIVE DIAGNOSIS: 1 cm left mid to upper ureteral stone. OPERATION: Extracorporeal shock wave lithotripsy. DESCRIPTION OF PROCEDURE: Patient is given general anesthesia. She is on lithotripsy table. The position of the patient was adjusted so that the stone could be treated and eventually received a total of 3000 shocks. At the end of the treatment, the stone appears to have broken well. The patient was doing well. Procedure was terminated. The patient was moved to recovery room in good condition. I will see her in the office sometime next week to make sure she is doing well. TIAGO / CELINE /[id number]
== END 2018-11-21 17:20 | disposition home or self-care (01) ==
LOC: MW.SDS 12:46
PROVIDERS: ATTEND Urology
DX: N20.1 Calculus of ureter (principal); F17.210 Nicotine dependence, cigarettes, uncomplicated; Z88.5 Allergy status to narcotic agent
CPT/HCPCS: 36415; 50590; 84703; A9270; J2001; J2250; J2370; J2405; J2704; J3010; J3490

== ENCOUNTER 2018-12-12 13:06 | Day surgery (SDC) | payer SELFPAY ==
[~2018-12-12 13:06] MED LIST changes: +Sodium Chloride 0.9% 10 ML SDV IV PRN; +Sodium Chloride 0.9% 10 ML Syringe FLUSH PRN; +Sodium Chloride 0.9% 2.5 ML Syringe FLUSH PRN; +ceFAZolin 1 GM Vial IV ONE
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
[2018-12-12] MEDS ORDERED: Glycopyrrolate 0.2 MG/ML SDV ONE ×2 (15:00→16:08)
[2018-12-12] MEDS ORDERED: Rocuronium 100 MG/10 ML Syringe ONE (15:00)
[2018-12-12] MEDS ORDERED: Lidocaine 2% 5 ML SDV ONE (15:00)
[2018-12-12] MEDS ORDERED: Ondansetron 4 MG/2 ML SDV ONE (15:00)
[2018-12-12] MEDS ORDERED: Neostigmine Methylsulfate 1 MG/ML 5 ML Syringe ONE (15:00)
[2018-12-12] MEDS ORDERED: Midazolam 1 MG/ML 2 ML SDV ONE (15:01)
[2018-12-12] MEDS ORDERED: fentaNYL 250 MCG/5 ML SDV ONE (15:01)
[2018-12-12] MEDS ORDERED: Propofol 200 MG/20 ML SDV ONE (15:01)
[2018-12-12] MEDS ORDERED: ePHEDrine 50 MG/ML SDV ONE (16:08)
[2018-12-12] MEDS ORDERED: Ketorolac 30 MG/ML SDV ONE (16:59)
[2018-12-12] MEDS ORDERED: fentaNYL 100 MCG/2 ML SDV IVPUSH PRN (17:10)
[2018-12-12] MEDS ORDERED: 50% Dextrose in Water 50 ML Syringe IVPUSH PRN (17:10)
[2018-12-12] MEDS ORDERED: Naloxone 0.4 MG/ML Syringe IVPUSH PRN (17:10)
[2018-12-12] MEDS ORDERED: EPINEPHrine 1 MG/1 ML Amp IVPUSH PRN (17:10)
[2018-12-12] MEDS ORDERED: Atropine 1 MG/ML SDV IVPUSH PRN ×2 (17:10)
[2018-12-12] MEDS ORDERED: Albuterol 0.083% 2.5 MG/3 ML Neb Soln NEB PRN (17:10)
[2018-12-12 20:33] VITALS: BP 129/96
--- NOTE | 2018-12-12 20:34 | PCM.POSTAN ---
POST ANESTHESIA ASSESSMENT - MENTAL STATUS Mental Status: Alert, Oriented - VITAL SIGNS Pulse Rate: 77 SaO2: 99 Resp Rate: 12 Blood Pressure: 129/96 - RESPIRATORY Respiratory Status: Respiratory Rate WNL, Airway Patent, O2 Saturation Stable - CARDIOVASCULAR CV Status: Pulse Rate WNL, Blood Pressure Stable - GASTROINTESTINAL GI Status: No Symptoms - PAIN Pain Score: 1 - POST OP HYDRATION Hydration Status: Adequate & Stable
--- NOTE | 2018-12-12 20:37 | PCM48HPAN ---
Post Anesthesia Note - EVALUATION WITHIN 48HRS OF ANESTHETIC Vital Signs in Normal Range: Yes Patient Participated in Evaluation: Yes Respiratory Function Stable: Yes Airway Patent: Yes Cardiovascular Function Stable: Yes Hydration Status Stable: Yes Pain Control Satisfactory: Yes Nausea and Vomiting Control Satisfactory: Yes Mental Status Recovered: Yes Pulse Rate: 77 SaO2: 97 Resp Rate: 12 Blood Pressure: 129/96
--- NOTE | 2018-12-12 23:54 | OR ---
SURGEON: Shaggy Krishnan M.D. DATE OF PROCEDURE: 12/12/2018 PREOPERATIVE DIAGNOSIS: Left upper ureteral stone. POSTOPERATIVE DIAGNOSIS: Left upper ureteral stone. OPERATIONS: 1. Ureteroscopy. 2. Laser lithotripsy. DESCRIPTION OF PROCEDURE: The patient was given general anesthesia. She was placed in the dorsal lithotomy position, prepped and draped in sterile drapes. Cystourethroscopy was done and that was normal. A guidewire was advanced in the left ureter all the way up into the renal pelvis alongside the stone. The lower ureter was then dilated using the UroMax II balloon dilator to approximately 15-[place]. The rigid ureteroscope was then advanced in the left ureter, but could not gain access to the stone. So the flexible ureteroscope was advanced in, the stone was visualized, was broken up into a multitude of tiny pieces using the holmium laser. With that done, some of the pieces were removed. The rest was mostly just dust that was left, and the guidewire was removed. The bladder was emptied and the patient was moved to recovery room in good condition. TIAGO / CELINE /[id number]
--- NOTE | 2018-12-15 08:51 | CR ---
EXAMINATION: Abdomen HISTORY: Surgical procedure COMPARISON: CT dated 12/11/2018 TECHNIQUE: Total of 14 fluoroscopic images provided. FINDINGS/IMPRESSION: There is wire selection of the left renal collecting system with ureteroscope visualized.
== END 2018-12-12 18:46 | disposition home or self-care (01) ==
LOC: MW.SDS 13:06 → MW.MS 17:56 → MW.SDS 18:46
PROVIDERS: ATTEND Urology
DX: N20.1 Calculus of ureter (principal); Z87.442 Personal history of urinary calculi; F17.210 Nicotine dependence, cigarettes, uncomplicated; Z88.5 Allergy status to narcotic agent
CPT/HCPCS: 36415; 52353; 76000; 84703; C1769; J1885; J2001; J2250; J2405; J2704; J3010; J3490; J7120; 88300

== ENCOUNTER 2019-01-06 10:36 | Day surgery (SDC) | payer SELFPAY ==
[2019-01-06] MEDS ORDERED: Iopamidol 200-M 10 ML vial ITHECAL ONE (12:43)
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
[2019-01-06] MEDS ORDERED: Rocuronium 100 MG/10 ML Syringe ONE (13:06)
[2019-01-06] MEDS ORDERED: Ondansetron 4 MG/2 ML SDV ONE (13:06)
[2019-01-06] MEDS ORDERED: fentaNYL 250 MCG/5 ML SDV ONE (13:07)
[2019-01-06] MEDS ORDERED: Propofol 200 MG/20 ML SDV ONE (13:07)
[2019-01-06] MEDS ORDERED: Midazolam 1 MG/ML 2 ML SDV ONE (13:07)
[2019-01-06] MEDS ORDERED: fentaNYL 100 MCG/2 ML SDV IVPUSH PRN (14:04)
[2019-01-06] MEDS ORDERED: ePHEDrine 50 MG/ML SDV ONE (14:19)
--- NOTE | 2019-01-06 15:33 | OR ---
SURGEON: Shaggy Krishnan M.D. DATE OF PROCEDURE: 01/06/2019 PREOPERATIVE DIAGNOSIS: Left renal-pelvis stone. POSTOPERATIVE DIAGNOSIS: Left renal-pelvis stone. OPERATIONS: Ureteroscopy and laser lithotripsy. DESCRIPTION OF PROCEDURE: The patient was given general anesthesia. She was in dorsal lithotomy position, prepped and draped in sterile drapes. Cystourethroscopy was done and that was normal. Two guidewires were advanced to the left ureter all the way up into the renal pelvis, one of which was used to provide access for the flexible ureteroscope. The inside of the kidney was inspected. Lower pole calyceal stone was identified and broken up into smaller pieces. Attempts at retrieving some of the pieces using the Zero tip basket was not very successful. After enough attempts were done, the rest of the procedure was stopped. With that done, the procedure was terminated. The bladder was emptied. The other guidewire was removed, and the patient was moved to recovery room in a good condition. TIAGO / CELINE /[id number]
--- NOTE | 2019-01-06 15:39 | PCM.POSTAN ---
POST ANESTHESIA ASSESSMENT - MENTAL STATUS Mental Status: Alert, Oriented - VITAL SIGNS Pulse Rate: 79 SaO2: 99 Resp Rate: 16 Blood Pressure: 112/70 - RESPIRATORY Respiratory Status: Respiratory Rate WNL - CARDIOVASCULAR CV Status: Pulse Rate WNL - GASTROINTESTINAL GI Status: No Symptoms - POST OP HYDRATION Hydration Status: Adequate & Stable
--- NOTE | 2019-01-06 15:55 | PCM48HPAN ---
Post Anesthesia Note - EVALUATION WITHIN 48HRS OF ANESTHETIC Vital Signs in Normal Range: Yes Patient Participated in Evaluation: Yes Respiratory Function Stable: Yes Airway Patent: Yes Cardiovascular Function Stable: Yes Hydration Status Stable: Yes Pain Control Satisfactory: Yes Nausea and Vomiting Control Satisfactory: Yes Mental Status Recovered: Yes Pulse Rate: 79 SaO2: 97 Resp Rate: 16 Blood Pressure: 112/70
[2019-01-06 16:11] VITALS: BP 128/74
--- NOTE | 2019-01-06 17:11 | CR ---
EXAMINATION: Abdomen HISTORY: Ureteroscopy COMPARISON: 12/31/2018 TECHNIQUE: Single fluoroscopic image FINDINGS/IMPRESSION: Single fluoroscopic images demonstrate selection of the left ureter with ureteroscopy noted.
== END 2019-01-06 16:26 | disposition home or self-care (01) ==
LOC: MW.SDS 10:36
PROVIDERS: ATTEND Urology
DX: N20.0 Calculus of kidney (principal); F17.210 Nicotine dependence, cigarettes, uncomplicated; Z88.5 Allergy status to narcotic agent
CPT/HCPCS: 52353; 76000; 81025; J0690; J2001; J2250; J2405; J2704; J3010; J7120; 00918; 88300; C1769; Q9966

== ENCOUNTER 2019-01-06 17:41 | Emergency (ER) | payer SELFPAY ==
[2019-01-06] MEDS ORDERED: fentaNYL 100 MCG/2 ML SDV IVPUSH ONE (18:25)
[2019-01-06] MEDS ORDERED: Sodium Chloride 0.9% 1,000 ML IV ONE (18:26)
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
[2019-01-06 19:33] VITALS: BP 127/81
== END 2019-01-06 19:33 | disposition home or self-care (01) ==
LOC: MW.ED 17:41
DX: N20.0 Calculus of kidney (principal); F17.210 Nicotine dependence, cigarettes, uncomplicated; Z88.5 Allergy status to narcotic agent
CPT/HCPCS: 96361; 96374; 99283; J3010; J7040; 99284

== ENCOUNTER 2019-02-12 00:21 | Emergency (ER) | payer SELFPAY ==
[2019-02-12 01:29] VITALS: BP 138/89
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
[2019-02-12 02:33] LABS: CHLORIDE,CL 104 mmol/L (98-107); SODIUM,NA 136 mmol/L (136-145)
== END 2019-02-12 02:55 | disposition home or self-care (01) ==
LOC: MW.ED 00:21
DX: Z13.9 Encounter for screening, unspecified (principal); F17.210 Nicotine dependence, cigarettes, uncomplicated; Z88.6 Allergy status to analgesic agent; Z79.899 Other long term (current) drug therapy; Z87.442 Personal history of urinary calculi
CPT/HCPCS: 36415; 80053; 81001; 83605; 85025; 87086; 87088; 87186; 99284

== ENCOUNTER 2019-02-18 13:01 | Emergency (ER) | payer SELFPAY ==
[2019-02-18] MEDS ORDERED: OLANZapine 10 MG in Water For Injection, Sterile 2.1 ML IM ONE (13:38)
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
[2019-02-18 14:10] LABS: ACETAMINOPHEN <2.0 ug/mL
[2019-02-18 14:21] LABS: CHLORIDE,CL 104 mmol/L (98-107); SODIUM,NA 140 mmol/L (136-145)
--- NOTE | 2019-02-18 14:33 | CT ---
EXAMINATION: Non contrast CT head. Coronal and sagittal reformats. HISTORY: Pain FINDINGS: No evidence of intra or extra axial hemorrhage, mass, midline shift, hydrocephalus or edema. No hypoattenuation changes in the major vascular territories to suggest acute infarct. No abnormal intracranial calcifications are detected. No evidence of substantial vascular calcifications. Paranasal sinuses and mastoid air cells are well aerated without substantial findings. Pituitary fossa appears unremarkable. Calvarium is intact. No evidence of skull fracture. There is approximately 6 mm of herniation of the right cerebellar tonsil. IMPRESSION: 1. No acute intracranial findings. 2. There is approximately 6 mm of herniation of the right cerebellar tonsil.
[2019-02-18 15:20] VITALS: BP 119/82
== END 2019-02-18 15:20 ==
LOC: MW.ED 13:01
DX: F15.959 Other stimulant use, unspecified with stimulant-induced psychotic disorder, unspecified (principal); F17.210 Nicotine dependence, cigarettes, uncomplicated; Z88.8 Allergy status to other drugs, medicaments and biological substances
CPT/HCPCS: 36415; 70450; 80053; 80305; 81001; 81025; 83735; 84443; 85025; 93005; 96372; 99284; G0480; J3490

== ENCOUNTER 2019-10-21 22:23 | Emergency (ER) | payer SELFPAY ==
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
[2019-10-21 23:29] LABS: BLOOD UREA NITROGEN,BUN 10 mg/dL (7.0-18.0); CARBON DIOXIDE,CO2 18.9 mmol/L (21.0-32.0); CHLORIDE,CL 104 mmol/L (98-107); GLUCOSE RANDOM 102 mg/dL (74-106); POTASSIUM,K 3.7 mmol/L (3.5-5.1); SODIUM,NA 137 mmol/L (136-145)
[2019-10-22 00:10] VITALS: BP 116/61; PULSE 69
== END 2019-10-22 00:16 | disposition home or self-care (01) ==
LOC: MW.ED 22:23
DX: O99.89 Other specified diseases and conditions complicating pregnancy, childbirth and the puerperium (principal); R10.9 Unspecified abdominal pain; Z3A.16 16 weeks gestation of pregnancy; Z88.5 Allergy status to narcotic agent
CPT/HCPCS: 36415; 80053; 81003; 83690; 85025; 99284

== ENCOUNTER 2019-11-24 00:48 | Emergency (ER) | payer SELFPAY ==
[2019-11-24 01:00] VITALS: BP 129/75; PULSE 111
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
== END 2019-11-24 01:25 | disposition home or self-care (01) ==
LOC: MW.ED 00:48
DX: Z00.00 Encounter for general adult medical examination without abnormal findings (principal); Z3A.22 22 weeks gestation of pregnancy; Z88.6 Allergy status to analgesic agent
CPT/HCPCS: 99282; 99283

== ENCOUNTER 2020-03-30 14:01 | Inpatient (IN) | payer MEDICAID ==
[2020-03-30] MEDS: Ampicillin 1 GM in Sodium Chloride 0.9% 50 ML IV SCH ×3 (15:01→22:01)
[2020-03-30] MEDS ORDERED: Carboprost Tromethamine 250 MCG/1 ML Amp IM PRN (15:14)
[2020-03-30] MEDS ORDERED: Lidocaine 1% 50 ML MDV INJECT PRN (15:14)
[2020-03-30] MEDS ORDERED: Misoprostol 200 MCG Tab PO PRN (15:14)
[2020-03-30] MEDS ORDERED: Sodium Chloride 0.9% 2.5 ML Syringe FLUSH PRN (15:14)
[2020-03-30] MEDS ORDERED: Methylergonovine 0.2 MG/1 ML Amp IM PRN (15:14)
[2020-03-30] MEDS ORDERED: Nalbuphine 10 MG/1 ML Vial IVPUSH PRN (15:14)
[2020-03-30] MEDS ORDERED: Sodium Chloride 0.9% 10 ML Syringe FLUSH PRN (15:14)
[2020-03-30] MEDS ORDERED: Water For Irrigation,Sterile 1,000 ML Container IRR PRN (15:14)
[2020-03-30] MEDS ORDERED: Sodium Chloride 0.9% 10 ML SDV IV PRN (15:14)
[2020-03-30] MEDS ORDERED: Butorphanol 1 MG/ML SDV IVPUSH PRN (15:14)
[2020-03-30] MEDS ORDERED: Tranexamic Acid 1,000 MG in Sodium Chloride 0.9% 100 ML IV PRN (15:14)
[2020-03-30] MEDS ORDERED: Ondansetron 4 MG/2 ML SDV IVPUSH PRN (15:14)
[2020-03-30] MEDS ORDERED: Terbutaline 1 MG/ML SDV SUBCUT PRN (15:14)
[2020-03-30] MEDS ORDERED: Oxytocin/0.9 % Sodium Chloride 30 UNIT/500 ML BAG IV SCH ×2 (15:15)
[2020-03-30] MEDS ORDERED: Ampicillin 2 GM in Sodium Chloride 0.9% 100 ML IV SCH (15:15)
[2020-03-30] MEDS: Lactated Ringers 1,000 ML IV SCH ×4 (16:10→23:33)
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
[2020-03-30] MEDS ORDERED: Ropivacaine HCl/PF 100 ML ONE (19:41)
[2020-03-30] MEDS ORDERED: Ropivacaine 0.2% PF 2 MG/ML 20 ML SDV ONE (19:41)
[2020-03-30] MEDS ORDERED: fentaNYL 100 MCG/2 ML SDV ONE (19:41)
[2020-03-30] MEDS ORDERED: Water For Injection, Sterile 20 ML ONE (20:39)
[2020-03-30] MEDS ORDERED: ePHEDrine 50 MG/ML SDV ONE (20:39)
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
[2020-03-30] MEDS ORDERED: Docusate Sodium 100 MG Cap PO PRN (23:24)
[2020-03-30] MEDS ORDERED: Ibuprofen 400 MG Tab PO PRN (23:24)
[2020-03-30] MEDS ORDERED: Acetaminophen 500 MG Tab PO PRN ×2 (23:24)
[2020-03-30] MEDS ORDERED: Bisacodyl 10 MG Supp RECTAL PRN (23:24)
[2020-03-30] MEDS ORDERED: Witch Hazel Medicated Pads 40/Jar TOP PRN (23:24)
[2020-03-30] MEDS ORDERED: Benzocaine/Menthol 20%-0.5% Spray 78 GM Cannister TOP PRN (23:24)
[2020-03-31] MEDS: Lanolin 100% Cream 7 GM Tube TOP PRN (01:46)
--- NOTE | 2020-03-31 07:17 | PCM48HPAN ---
Post Anesthesia Note - EVALUATION WITHIN 48HRS OF ANESTHETIC Vital Signs in Normal Range: Yes Patient Participated in Evaluation: Yes Respiratory Function Stable: Yes Airway Patent: Yes Cardiovascular Function Stable: Yes Hydration Status Stable: Yes Pain Control Satisfactory: Yes Nausea and Vomiting Control Satisfactory: Yes Mental Status Recovered: Yes Vital Signs: Last Vital Signs Temp 36.6 C 03/31/20 04:20 Pulse 89 03/31/20 04:20 Resp 19 03/31/20 04:20 BP 124/68 03/31/20 04:20 Pulse Ox 98 03/31/20 04:20 - COMMENTS/OBSERVATIONS Free Text/Narrative:: Doing well. No problems post.
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
[2020-03-31] MEDS: Ibuprofen 800 MG Tab PO PRN ×2 (09:33→20:06)
[2020-03-31] MEDS: Ampicillin 1 GM in Sodium Chloride 0.9% 50 ML IV SCH (11:15)
[2020-04-01 08:25] VITALS: BP 93/57; PULSE 60
--- NOTE | 2020-04-01 08:58 | PCM.PNPP ---
- General Info Date of Service: 04/01/20 Functional Status: Reports: Pain Controlled - Review of Systems General: Reports: No Symptoms HEENT: Reports: No Symptoms Pulmonary: Reports: No Symptoms Cardiovascular: Reports: No Symptoms Gastrointestinal: Reports: No Symptoms Genitourinary: Reports: No Symptoms Musculoskeletal: Reports: No Symptoms Skin: Reports: No Symptoms Neurological: Reports: No Symptoms Psychiatric: Reports: No Symptoms - General Info Date of Service: 04/01/20 - Patient Data Vital Signs - Most Recent: Last Vital Signs Temp 36.6 C 04/01/20 08:24 Pulse 60 04/01/20 08:24 Resp 16 04/01/20 08:24 BP 93/57 L 04/01/20 08:24 Pulse Ox 98 04/01/20 08:24 Weight - Most Recent: 65.317 kg Med Orders - Current: Current Medications Acetaminophen (Tylenol Extra Strength) 500 mg PO Q4H PRN PRN Reason: Pain Acetaminophen (Tylenol Extra Strength) 1,000 mg PO Q4H PRN PRN Reason: Pain Benzocaine/Menthol (Dermoplast Pain Relief 20%-0.5% [place]) 78 gm TOP ASDIRECTED PRN PRN Reason: Perineal Comfort Measure Last Admin: 03/31/20 01:47 Dose: 1 canister Documented by: Bisacodyl (Dulcolax) 10 mg RECTAL ONETIME PRN PRN Reason: Constipation Docusate Sodium (Colace) 100 mg PO BID PRN PRN Reason: Constipation Emollient Ointment (Lansinoh Hpa) 0 gm TOP ASDIRECTED PRN PRN Reason: Sore Nipples Last Admin: 03/31/20 01:46 Dose: 7 g Documented by: Ibuprofen (Motrin) 400 mg PO Q4H PRN PRN Reason: Pain Last Admin: 03/31/20 02:01 Dose: 400 mg Documented by: Ibuprofen (Motrin) 800 mg PO Q6H PRN PRN Reason: Pain Last Admin: 03/31/20 20:06 Dose: 800 mg Documented by: Elba Mckeon (Tucks) 1 pad TOP ASDIRECTED PRN PRN Reason: comfort care Last Admin: 03/31/20 01:47 Dose: 1 tub Documented by: Discontinued Medications Butorphanol Tartrate (Stadol) 1 mg IVPUSH Q1H PRN PRN Reason: Pain Carboprost Tromethamine (Hemabate Ds) 250 mcg IM ASDIRECTED PRN PRN Reason: Post Hemorrhage Ephedrine Sulfate (Ephedrine Sulfate) Confirm Administered Dose 100 mg .ROUTE .STK-MED ONE Stop: 03/30/20 20:40 Fentanyl (Sublimaze) Confirm Administered Dose 100 mcg .ROUTE .STK-MED ONE Stop: 03/30/20 19:42 Last Admin: 03/30/20 23:37 Dose: Not Given Documented by: Lactated Ringer's (Ringers, Lactated) 1,000 mls @ 150 mls/hr IV ASDIRECTED MITRA Last Admin: 03/30/20 23:33 Dose: 999 mls/hr Documented by: Oxytocin/Sodium Chloride (Oxytocin 30 Unit/500 Ml-Ns) 30 unit in 500 mls @ 500 mls/hr IV TITRATE [facility] Last Infusion: 03/30/20 23:10 Dose: 500 mls/hr Documented by: Tranexamic Acid 1,000 mg/ (Sodium Chloride) 110 mls @ 660 mls/hr IV ONETIME PRN PRN Reason: Bleeding Oxytocin/Sodium Chloride (Oxytocin 30 Unit/500 Ml-Ns) 30 unit in 500 mls @ 2 mls/hr IV TITRATE [facility]; Protocol Last Titration: 03/30/20 22:55 Dose: 0 munits/min, 0 mls/hr Documented by: Ampicillin Sodium 2 gm/ Sodium (Chloride) 100 mls @ 200 mls/hr IV .ONCE MITRA Last Admin: 03/30/20 16:28 Dose: 200 mls/hr Documented by: Ampicillin Sodium 1 gm/ Sodium (Chloride) 50 mls @ 100 mls/hr IV Q4H [facility] Last Admin: 03/31/20 11:15 Dose: Not Given Documented by: Ropivacaine (Naropin 0.2%) Confirm Administered Dose 100 mls @ as directed .ROUTE .ST-MED ONE Stop: 03/30/20 19:42 Last Admin: 03/31/20 10:31 Dose: Not Given Documented by: Sterile Water (Sterile Water For Injection) Confirm Administered Dose 20 mls @ as directed .ROUTE .STK-MED ONE Stop: 03/30/20 20:40 Lidocaine HCl (Xylocaine 1%) 50 ml INJECT ONETIME PRN PRN Reason: Laceration repair Methylergonovine Maleate (Methergine) 0.2 mg IM ASDIRECTED PRN PRN Reason: Post Hemorrhage Misoprostol (Cytotec) 200 mcg PO ONETIME PRN PRN Reason: Post Hemorrhage Nalbuphine HCl (Nubain) 10 mg IVPUSH Q1H PRN PRN Reason: Pain (severe 7-10) Ondansetron HCl (Zofran) 4 mg IVPUSH Q4H PRN PRN Reason: Nausea/Vomiting Ropivacaine (Naropin 0.2%) Confirm Administered Dose 20 ml .ROUTE .UCROO-MED ONE Stop: 03/30/20 19:42 Last Admin: 03/30/20 23:37 Dose: Not Given Documented by: Sodium Chloride (Saline Flush) 10 ml FLUSH ASDIRECTED PRN PRN Reason: Keep Vein Open Sodium Chloride (Saline Flush) 2.5 ml FLUSH ASDIRECTED PRN PRN Reason: Keep Vein Open Sodium Chloride (Normal Saline) 10 ml IV ASDIRECTED PRN PRN Reason: IV Use Sterile Water (Sterile Water For Irrigation) 1,000 ml IRR ASDIRECTED PRN PRN Reason: delivery Terbutaline Sulfate (Brethine) 0.25 mg SUBCUT ASDIRECTED PRN PRN Reason: Tacysystole - Infant Interaction Infant Disposition, : [place] in Room with Family Infant Interaction: Holding Infant Feeding: Breastfed ; Nursed Well Support Person: Friend - Recovery Exam Fundal Tone: Firm Fundal Level: 1 Fingerbreadths Below Umbilicus Fundal Placement: Midline Lochia Amount: Scant Lochia Color: Rubra/Red Perineum Description: Intact, Minimal Bruising/Swelling Episiotomy/Laceration: None Bladder Status: Voiding Urinary Elimination: Voided - Exam General: Alert, Oriented HEENT: Pupils Equal Neck: Supple Lungs: Clear to Auscultation, Normal Respiratory Effort Cardiovascular: Regular Rate, Regular Rhythm GI/Abdominal Exam: Normal Bowel Sounds, Soft, Non-Tender, No Organomegaly, No Distention, No Abnormal Bruit, No Mass, Pelvis Stable Extremities: Normal Inspection, Normal Range of Motion, Non-Tender, No Pedal Edema, Normal Capillary Refill Skin: Warm, Dry, Intact Wound/Incisions: Healing Well Neurological: No New Focal Deficit Psy/Mental Status: Alert, Normal Affect, Normal Mood - Problem List Review Problem List Initiated/Reviewed/Updated: Yes - Assessment Assessment:: Status post normal spontaneous vaginal delivery she is doing well we'll send her home today - Plan Plan:: Admit to inpatient unit S/P uncomplicated of term NBF. See new orders. Dr. Richardson notified and agreeable with POC. PPD#1 A: VSS, AF, Lochia small. Intact. Breast feeding well. Stable P: Continue pp plan POC.
[2020-04-01] MEDS: Lanolin 100% Cream 7 GM Tube TOP PRN (13:28)
== END 2020-04-01 14:35 | disposition home or self-care (01) | DRG 807 ==
LOC: MW.OBCHECK 14:01 → MW.OB 15:07 → OBSVTOIN 22:54 → MW.OB 03-31 03:28
PROVIDERS: ADMIT Obstetrics & Gynecology; ATTEND Obstetrics & Gynecology
PROC: 10E0XZZ Delivery of Products of Conception, External Approach (ICD-10-PCS; principal; 2020-03-30)
PROC: 10907ZC Drainage of Amniotic Fluid, Therapeutic from Products of Conception, Via Natural or Artificial Opening (ICD-10-PCS; 2020-03-30)
PROC: 3E0R3BZ Introduction of Anesthetic Agent into Spinal Canal, Percutaneous Approach (ICD-10-PCS; 2020-03-30)
DX: O99.824 Streptococcus B carrier state complicating childbirth (principal); Z37.0 Single live birth; Z3A.40 40 weeks gestation of pregnancy; O99.334 Smoking (tobacco) complicating childbirth; F17.210 Nicotine dependence, cigarettes, uncomplicated; Z11.59 Encounter for screening for other viral diseases; Z87.442 Personal history of urinary calculi; O69.81X0 Labor and delivery complicated by cord around neck, without compression, not applicable or unspecified; O71.82 Other specified trauma to perineum and vulva
CPT/HCPCS: 36415; 51702; 59025; 59409; 81001; 84112; 85014; 85018; 85027; 86592; 86850; 86900; 86901; A9270-GY; J0290; J2590; J7050; J7120; U0002

== ENCOUNTER 2020-06-24 07:50 | Day surgery (SDC) | payer MEDICAID, OTHER ==
[~2020-06-24 07:50] MED LIST changes: +Ketorolac 30 MG/ML SDV ONE; +Midazolam 1 MG/ML 2 ML SDV ONE; +Ondansetron 4 MG/2 ML SDV ONE; +Propofol 200 MG/20 ML SDV ONE; +Rocuronium Bromide 50 MG/5 ML Syringe ONE; -Sodium Chloride 0.9% 10 ML SDV IV PRN; -Sodium Chloride 0.9% 10 ML Syringe FLUSH PRN; -Sodium Chloride 0.9% 2.5 ML Syringe FLUSH PRN; -ceFAZolin 1 GM Vial IV ONE; +ceFAZolin 2 GM in Premix Bag 1 BAG IV ONE; +fentaNYL 100 MCG/2 ML SDV ONE
[2020-06-24] MEDS ORDERED: Bupivacaine 25%/EPINEPHrine/PF 30 ML ONE (07:52)
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
[2020-06-24] MEDS ORDERED: Morphine 10 MG/ML Syringe ONE ×2 (09:06→11:39)
[2020-06-24] MEDS ORDERED: Octyl 2-Cyanoacrylate 1 Tube ONE (09:31)
--- NOTE | 2020-06-24 09:58 | PCM.OPNOTE ---
- General Post-Op/Procedure Note Date of Surgery/Procedure: 06/24/20 Operative Procedure(s): incarcerated umb hernia repair, no mesh used Findings: omentum inside, fascia defect of 8 mm, repaired primarily, no mesh used; [id number] Pre Op Diagnosis: incarcerated umb hernia Post-Op Diagnosis: Same Anesthesia Technique: General ET Tube Primary Surgeon: Hai Whitmore Complications: None Condition: Good
[2020-06-24] MEDS ORDERED: Acetaminophen/oxyCODONE 325-5 MG Tab PO PRN (09:59)
--- NOTE | 2020-06-24 10:31 | OR ---
SURGEON: Hai Whitmore MD DATE OF PROCEDURE: 06/24/2020 PREOPERATIVE DIAGNOSIS: Incarcerated umbilical hernia. POSTOPERATIVE DIAGNOSIS: Incarcerated umbilical hernia. PROCEDURE PERFORMED: Hernia repair, primary, no mesh used. PRIMARY SURGEON: Hai Whitmore MD COMPLICATIONS: None. FINDINGS: Fascial defect of 8 mm and omentum trapped inside and pulled back into the peritoneal cavity. PROCEDURE: The patient was brought to the operating room and placed in the supine position and upon the induction of general endotracheal anesthesia, the patient's abdomen was prepped and draped in sterile fashion. After assessment of appropriate landmarks, a surgical incision was made periumbilically which was then carefully dissected with blunt and sharp dissection surrounding the umbilical stalk. Hernia was entered and the fascial defect was noted, and the excess hernia sac was amputated. The facial edge was noted to be intact and the fascia was then grasped up with Allis clamps and then using 2-0 Ethibond, simple stitches were placed. After repair was finished and exploring the neighborhood, I failed to find any more hernia defect. This was followed with extensive irrigation and good hemostasis was achieved by using electrocautery. The umbilicus was then stitched down to recreate the umbilicus, and the skin was closed with 3-0 Vicryl subcutaneously followed with Dermabond approximating the skin. The patient was then awakened and extubated and transferred to the recovery room in good stable condition. Dr. Whitmore was present through the whole procedure. At the conclusion of the surgery, before closing the abdominal wound, instrument count and sponge count were done and were correct. Just before surgery, a timeout was called. The patient was identified and procedure identified and procedure started. Intraoperative findings as dictated above. NEELIMA / CELINE /[id number]
--- NOTE | 2020-06-24 11:27 | PCM.POSTAN ---
POST ANESTHESIA ASSESSMENT - MENTAL STATUS Mental Status: Alert, Oriented - VITAL SIGNS Vital Signs: Last Vital Signs Temp 97.3 F 06/24/20 10:30 Pulse 74 06/24/20 11:00 Resp 6 L 06/24/20 11:00 BP 107/59 L 06/24/20 11:00 Pulse Ox 98 06/24/20 11:00 - RESPIRATORY Respiratory Status: Respiratory Rate WNL, Airway Patent, O2 Saturation Stable - CARDIOVASCULAR CV Status: Pulse Rate WNL, Blood Pressure Stable - GASTROINTESTINAL GI Status: No Symptoms - POST OP HYDRATION Hydration Status: Adequate & Stable
[2020-06-24] MEDS ORDERED: Morphine 2 MG/ML SYRINGE IV ONE (11:34)
--- NOTE | 2020-06-24 12:30 | PCM48HPAN ---
Post Anesthesia Note - EVALUATION WITHIN 48HRS OF ANESTHETIC Vital Signs in Normal Range: Yes Patient Participated in Evaluation: Yes Respiratory Function Stable: Yes Airway Patent: Yes Cardiovascular Function Stable: Yes Hydration Status Stable: Yes Pain Control Satisfactory: Yes Nausea and Vomiting Control Satisfactory: Yes Mental Status Recovered: Yes Vital Signs: Last Vital Signs Temp 97.3 F 06/24/20 10:30 Pulse 74 06/24/20 11:00 Resp 6 L 06/24/20 11:00 BP 107/59 L 06/24/20 11:00 Pulse Ox 98 06/24/20 11:00
[2020-06-24 13:41] VITALS: BP 110/64; PULSE 72
== END 2020-06-24 13:00 | disposition home or self-care (01) ==
LOC: MW.SDS 07:50
PROVIDERS: ATTEND Surgery
DX: K42.0 Umbilical hernia with obstruction, without gangrene (principal); F41.9 Anxiety disorder, unspecified; F12.90 Cannabis use, unspecified, uncomplicated; F17.210 Nicotine dependence, cigarettes, uncomplicated; I10 Essential (primary) hypertension; Z79.899 Other long term (current) drug therapy; Z88.8 Allergy status to other drugs, medicaments and biological substances
CPT/HCPCS: 49587; 81025; A9270; J0131; J1885; J2001; J2250; J2270; J2405; J2704; J3010; J7120

== ENCOUNTER 2021-04-17 19:19 | Emergency (ER) | payer MEDICAID ==
[2021-04-17] MEDS ORDERED: Sodium Chloride 0.9% 2.5 ML Syringe FLUSH PRN (19:43)
[2021-04-17] MEDS ORDERED: Sodium Chloride 0.9% 10 ML Syringe FLUSH PRN (19:43)
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
[2021-04-17] MEDS ORDERED: Iopamidol 755 MG/ML 500 ML Multipack Bottle IVPUSH ONE (20:14)
[2021-04-17 20:41] LABS: BLOOD UREA NITROGEN,BUN 12 mg/dL (7.0-18.0); CARBON DIOXIDE,CO2 25.1 mmol/L (21.0-32.0); CHLORIDE,CL 104 mmol/L (98-107); GLUCOSE RANDOM 94 mg/dL (74-106); POTASSIUM,K 4.3 mmol/L (3.5-5.1); SODIUM,NA 140 mmol/L (136-145)
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
[2021-04-18 03:29] VITALS: BP 137/86; PULSE 80
== END 2021-04-17 21:53 | disposition home or self-care (01) ==
LOC: MW.ED 19:19
DX: S10.93XA Contusion of unspecified part of neck, initial encounter (principal); Z88.5 Allergy status to narcotic agent; Y04.0XXA Assault by unarmed brawl or fight, initial encounter
CPT/HCPCS: 36415; 70498; 80048; 85025; 99284; Q9967

== ENCOUNTER 2021-08-20 22:19 | Emergency (ER) | payer MEDICAID ==
[2021-08-20 22:48] VITALS: BP 158/89; PULSE 98
[2021-08-20] MEDS ORDERED: Cephalexin 500 MG Cap PO ONE (23:43)
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
== END 2021-08-21 00:05 | disposition home or self-care (01) ==
LOC: MW.ED 22:19
DX: K04.7 Periapical abscess without sinus (principal); Z88.8 Allergy status to other drugs, medicaments and biological substances; Z72.0 Tobacco use
CPT/HCPCS: 99282; A9270

== ENCOUNTER 2021-10-04 11:50 | Emergency (ER) | payer MEDICAID ==
[2021-10-04 14:55] VITALS: BP 123/85; PULSE 87
== END 2021-10-04 14:55 | disposition home or self-care (01) ==
LOC: MW.ED 11:50
DX: S30.0XXA Contusion of lower back and pelvis, initial encounter (principal); Z88.5 Allergy status to narcotic agent; W18.09XA Striking against other object with subsequent fall, initial encounter
CPT/HCPCS: 72100; 72100-26; 72192; 72192-26; 81025; 99284; 99284-25

== ENCOUNTER 2021-10-10 16:23 | Emergency (ER) | payer MEDICAID ==
[2021-10-10 16:30] VITALS: BP 136/70
[2021-10-10] MEDS ORDERED: Ondansetron 4 MG/2 ML SDV IVPUSH ONE (16:40)
[2021-10-10] MEDS ORDERED: Sodium Chloride 0.9% 1,000 ML IV ONE (16:40)
[2021-10-10] MEDS ORDERED: Ketorolac 30 MG/ML SDV IVPUSH ONE (16:40)
[2021-10-10] MEDS ORDERED: Benzocaine 20% Topical Spray UD MUCMEM ONE (16:41)
[2021-10-10] MEDS ORDERED: Lidocaine 2% Viscous Solution 15 ML UD PO ONE (16:41)
[2021-10-10 17:35] LABS: BLOOD UREA NITROGEN,BUN 21 mg/dL (7.0-18.0); CHLORIDE,CL 101 mmol/L (98-107); GLUCOSE RANDOM 99 mg/dL (74-106); SODIUM,NA 138 mmol/L (136-145)
[2021-10-10] MEDS ORDERED: Potassium Chloride 20 MEQ Tab.ER PO STA (17:39)
[2021-10-10 19:28] VITALS: PULSE 94
== END 2021-10-10 19:28 | disposition home or self-care (01) ==
LOC: MW.ED 16:23
DX: T78.40XA Allergy, unspecified, initial encounter (principal); K02.9 Dental caries, unspecified; Z88.5 Allergy status to narcotic agent
CPT/HCPCS: 36415; 80053; 81001; 85025; 96374; 96375; 99284; A9270; J1885; J2405; J7030

== ENCOUNTER 2021-10-15 19:01 | Emergency (ER) | payer MEDICAID ==
[2021-10-15 19:24] VITALS: BP 148/58; PULSE 106
== END 2021-10-15 20:57 | disposition home or self-care (01) ==
LOC: MW.ED 19:01
DX: S89.91XA Unspecified injury of right lower leg, initial encounter (principal); Z88.5 Allergy status to narcotic agent; W18.30XA Fall on same level, unspecified, initial encounter
CPT/HCPCS: 73562-26-RT; 73562-RT; 99283

== ENCOUNTER 2021-10-16 11:02 | Emergency (ER) | payer MEDICAID ==
[2021-10-16 11:13] VITALS: BP 133/90; PULSE 83
== END 2021-10-16 11:35 | disposition home or self-care (01) ==
LOC: MW.ED 11:02
DX: K08.89 Other specified disorders of teeth and supporting structures (principal); Z88.5 Allergy status to narcotic agent
CPT/HCPCS: 99283

== ENCOUNTER 2021-11-09 22:16 | Emergency (ER) | payer MEDICAID ==
[2021-11-09] MEDS ORDERED: Clindamycin HCl 150 MG Cap PO STA (22:50)
[2021-11-09] MEDS ORDERED: Acetaminophen 325 MG Tab PO ONE (22:50)
[2021-11-09] MEDS ORDERED: Ibuprofen 600 MG Tab PO ONE (22:51)
[2021-11-09 23:15] VITALS: BP 137/86; PULSE 87
== END 2021-11-09 23:14 | disposition home or self-care (01) ==
LOC: MW.ED 22:16
DX: K02.9 Dental caries, unspecified (principal); Z88.6 Allergy status to analgesic agent
CPT/HCPCS: 99282; A9270; 99283

== ENCOUNTER 2022-12-22 14:53 | Emergency (ER) | payer MEDICAID ==
[2022-12-22 15:26] VITALS: BP 105/70
[2022-12-22 17:20] VITALS: PULSE 78
== END 2022-12-22 17:19 | disposition home or self-care (01) ==
LOC: MW.ED 14:53
DX: J40 Bronchitis, not specified as acute or chronic (principal); Z88.0 Allergy status to penicillin; Z88.5 Allergy status to narcotic agent; Z72.0 Tobacco use
CPT/HCPCS: 71046; 71046-26; 99283; 99284

== ENCOUNTER 2022-12-26 15:47 | Emergency (ER) | payer MEDICAID ==
[2022-12-26] MEDS ORDERED: Sodium Chloride 0.9% 2.5 ML Syringe FLUSH PRN (16:26)
[2022-12-26] MEDS ORDERED: Sodium Chloride 0.9% 10 ML Syringe FLUSH PRN (16:26)
[2022-12-26] MEDS ORDERED: LORazepam 2 MG/ML SDV IVPUSH STA (16:29)
[2022-12-26 17:29] LABS: BASOPHILS PERCENT AUTO 0.2 % (0.0-1.5); EOSINOPHILS PERCENT AUTO 0.1 % (0.0-7.0); HEMATOCRIT 41.4 % (36.0-46.0); HEMOGLOBIN 14.9 g/dL (12.0-16.0); LYMPHOCYTES ABSOLUTE AUTO 2.9 K/uL (0.6-2.4); LYMPHOCYTES PERCENT AUTO 18.7 % (16.0-40.0); MEAN CORPUSCULAR HEMOGLOBIN 31.1 pg (27.0-32.0); MEAN CORPUSCULAR VOLUME 86.4 fL (80.0-98.0); MONOCYTES ABSOLUTE AUTO 1.4 K/uL (0.0-0.8); MONOCYTES PERCENT AUTO 9.3 % (0.0-15.0); NEUTROPHILS PERCENT AUTO 71.7 % (48.0-80.0); PLATELET COUNT,PLT 437 K/uL (150-400); RED BLOOD CELL COUNT 4.79 M/uL (4.30-5.90)
[2022-12-26 18:04] LABS: CORONAVIRUS COVID-19 NAA NEGATIVE (NEGATIVE); INFLUENZA A NAA NEGATIVE (NEGATIVE); INFLUENZA B NAA NEGATIVE (NEGATIVE)
[2022-12-26 18:14] LABS: A/G RATIO 1.4 (0.9-1.6); ALBUMIN 4.4 g/dL (3.4-5.0); BILIRUBIN TOTAL 0.7 mg/dL (0.2-1.0); CALCIUM 9.7 mg/dL (8.5-10.1); CARBON DIOXIDE,CO2 22.3 mmol/L (21.0-32.0); CREATININE 0.9 mg/dL (0.6-1.0); EST CRCL DRUG DOSING (CG) 69.6 mL/min; POTASSIUM,K 4.2 mmol/L (3.5-5.1); PROTEIN TOTAL,TP 7.6 g/dL (6.4-8.2)
[2022-12-26 18:40] VITALS: BP 120/73; PULSE 97
== END 2022-12-26 18:40 | disposition home or self-care (01) ==
LOC: MW.ED 15:47
DX: F41.9 Anxiety disorder, unspecified (principal); Z88.0 Allergy status to penicillin; Z88.5 Allergy status to narcotic agent; Z20.822 Contact with and (suspected) exposure to COVID-19
CPT/HCPCS: 0240U; 36415; 71045; 80053; 85025; 96374; 99285; J2060; J3490; 93005

== ENCOUNTER 2025-05-15 11:07 | Emergency (ER) | payer MEDICAID ==
[2025-05-15] MEDS ORDERED: Sodium Chloride 0.9% 10 ML Syringe FLUSH PRN (11:52)
[2025-05-15] MEDS ORDERED: Sodium Chloride 0.9% 2.5 ML Syringe FLUSH PRN (11:52)
[2025-05-15] MEDS: Clindamycin Phosphate in D5W 300 MG in Premix Bag 1 BAG IV ONE (12:03)
[2025-05-15 12:06] VITALS: PULSE 78
[2025-05-15 12:29] LABS: BASOPHILS ABSOLUTE AUTO 0.04 K/uL (0.00-0.20); BASOPHILS PERCENT AUTO 0.5 % (0.0-1.0); EOSINOPHILS ABSOLUTE AUTO 0.06 K/uL (0.00-0.45); EOSINOPHILS PERCENT AUTO 0.7 % (0.0-6.0); IMMATURE GRAN ABSOLUTE AUTO 0.02 K/uL (0.00-0.05); IMMATURE GRAN PERCENT AUTO 0.2 % (0.0-0.4); LYMPHOCYTES ABSOLUTE AUTO 2.46 K/uL (1.00-4.80); LYMPHOCYTES PERCENT AUTO 29.2 % (24.0-44.0); MEAN PLATELET VOLUME 8.8 fL (9.4-12.3); MONOCYTES ABSOLUTE AUTO 0.85 K/uL (0.00-0.80); MONOCYTES PERCENT AUTO 10.1 % (0.0-8.0); NEUTROPHILS ABSOLUTE AUTO 5.00 K/uL (1.80-7.70); NEUTROPHILS PERCENT AUTO 59.3 % (41.0-71.0); NRBC ABSOLUTE 0.00 K/uL (0.00-0.02); NRBC PERCENT 0.0 /100WBC (0.0-0.2); PLATELET COUNT,PLT 390 K/uL (150-400); RED BLOOD CELL COUNT 4.67 M/uL (4.10-5.30); WHITE BLOOD CELL COUNT,WBC 8.43 K/uL (3.9-11.3)
[2025-05-15 12:50] LABS: A/G RATIO 1.2 (0.9-1.6); ALANINE AMINOTRANSFERASE,ALT 158.0 IU/L (14-63); ASPARTATE AMNIOTRANSFERASE,AST 133.0 IU/L (15-37); BILIRUBIN TOTAL 0.2 mg/dL (0.2-1.0); BLOOD UREA NITROGEN,BUN 13.0 mg/dL (7.0-18.0); CARBON DIOXIDE,CO2 25.5 mmol/L (21.0-32.0); CHLORIDE,CL 102.0 mmol/L (98-107); CREATININE 0.6 mg/dL (0.6-1.0); EST CRCL DRUG DOSING (CG) 96.69 mL/min; GLUCOSE RANDOM 76.0 mg/dL (74-106); POTASSIUM,K 4.0 mmol/L (3.5-5.1); PROTEIN TOTAL,TP 7.6 g/dL (6.4-8.2); SODIUM,NA 139.0 mmol/L (136-145)
[2025-05-15 12:53] LABS: ESTIMATED GFR 122.0 mL/min (>60)
[2025-05-15] MEDS: Lidocaine 1% PF 2 ML SDV INJECT ONE (13:04)
[2025-05-15 13:24] VITALS: BP 120/85
== END 2025-05-15 13:20 | disposition home or self-care (01) ==
LOC: MW.ED 11:07
DX: L03.213 Periorbital cellulitis (principal); I10 Essential (primary) hypertension; Z75.3 Unavailability and inaccessibility of health-care facilities; Z88.1 Allergy status to other antibiotic agents; Z88.8 Allergy status to other drugs, medicaments and biological substances
CPT/HCPCS: 36415; 80053; 85025; 96365; 99283; J0736; J2003